=== PATIENT | male | born 1955 | race African-American/Black ===

== ENCOUNTER 2022-07-18 14:06 | Inpatient (IN) | payer MEDICARE, OTHER ==
[~2022-07-18] VITALS: Ht 170.2 cm; Wt 83.0 kg
[2022-07-18] MEDS ORDERED: IV NS 0.9% 1,000 ML BAG IV ONE (14:30)
--- NOTE | 2022-07-18 14:45 | NUR ---
PT ON BED WITH CC OF BODY WEAKNESS. PUT ON GOWN. TECH AT BEDSIDE DOING EKG
--- NOTE | 2022-07-18 14:52 | NUR ---
joseph johnson sent to labcovid swad done sent to lab. msra SWAB DONE SENT TO LAB BY TECH. PUT ON MONITOR AND PULSE
[2022-07-18 15:05] LABS: BASOPHILS % (AUTO) 0.2 % (0.0-2.0); EOSINOPHILS % (AUTO) 4.7 % (0.0-6.0); HEMATOCRIT 35 % (39-51); HEMOGLOBIN 11.9 g/dL (13.5-17.5); LYMPHOCYTES # (AUTO) 2.2 K/uL (0.8-4.8); LYMPHOCYTES % (AUTO) 23.4 % (20.0-44.0); MEAN CORPUSCULAR HGB CONC 34 g/dl (31.0-36.0); MEAN CORPUSCULAR VOLUME 99 fL (80-96); MONOCYTES # (AUTO) 0.8 K/uL (0.1-1.30); MONOCYTES % (AUTO) 8.1 % (2.0-12.0); NEUTROPHILS % (AUTO) 63.6 % (43.0-81.0); PLATELET COUNT (AUTO) 240 K/uL (150-450); RED BLOOD CELL COUNT(AUTO) 3.59 MIL/uL (4.5-6.0); WHITE BLOOD COUNT (AUTO) 9.5 K/uL (4.3-11.0)
[2022-07-18 15:17] LABS: CALCIUM, SERUM 8.7 mg/dL (8.5-10.1); POTASSIUM 4.5 mmol/L (3.5-5.1)
--- NOTE | 2022-07-18 15:20 | NUR ---
ACCUCHECK DONE 102. AWARE
[2022-07-18 15:22] LABS: ALBUMIN 2.9 g/dL (3.4-5.0); BILIRUBIN,DIRECT 0.1 mg/dL (0.0-0.2); BILIRUBIN,TOTAL 0.3 mg/dL (0.2-1.0); TOTAL PROTEIN, SERUM 5.9 g/dL (6.4-8.2)
--- NOTE | 2022-07-18 15:43 | NUR ---
CALLED NURSING SUP REGARDING PT BED
--- NOTE | 2022-07-18 16:33 | NUR ---
BED GIVEN 306-1
[2022-07-18] MEDS ORDERED: BISA10SU11 RC (17:02)
[2022-07-18] MEDS ORDERED: GABA-536 PO (17:02)
[2022-07-18] MEDS ORDERED: ACET-868 PO (17:02)
[2022-07-18] MEDS ORDERED: MAGN400O6 PO (17:02)
[2022-07-18] MEDS ORDERED: ATOR10TA PO (17:02)
[2022-07-18] MEDS ORDERED: DIVA250T47 PO (17:02)
[2022-07-18] MEDS ORDERED: RISP0.2515 PO (17:02)
[2022-07-18] MEDS ORDERED: BENZ1TAB7 PO (17:02)
[2022-07-18] MEDS ORDERED: VENL75TA4 PO (17:02)
[2022-07-18] MEDS ORDERED: NA P133E RC (17:02)
[2022-07-18] MEDS ORDERED: NA PHOS,M-B/NA PHOS,DI-BA 1 EA ENEMA RC PRN (17:30)
[2022-07-18] MEDS ORDERED: Z GUARD REMEDY 4 OZ OINT TP PRN (17:30)
[2022-07-18] MEDS ORDERED: ONDANSETRON HCL/PF 4 MG/2 ML VIAL IVP PRN (17:30)
[2022-07-18] MEDS ORDERED: MAGNESIUM HYDROXIDE 30 ML UDC PO PRN (17:30)
[2022-07-18] MEDS ORDERED: ACETAMINOPHEN 325 MG TABLET PO PRN (17:30)
[2022-07-18] MEDS ORDERED: HYDROCODONE/APAP 5/325MG TABLET PO PRN (17:30)
[2022-07-18] MEDS ORDERED: BISACODYL SUPP (10 MG) 10 MG/SUPP.RECT SUPP.RECT RC PRN (17:30)
[2022-07-18] MEDS ORDERED: MAG HYDROX/AL HYDROX/SIMETH 30 ML UDC PO PRN (17:30)
[2022-07-18 17:50] LABS: CHOLESTEROL 105 mg/dL (<200); HDL CHOLESTEROL 41 mg/dL (40-60); LDL 57 mg/dL (0-99); TRIGLYCERIDES 66 mg/dL (30-150)
--- NOTE | 2022-07-18 18:36 | NUR ---
MS RN ADMITTING NOTES PT ARRIVED TO UNIT VIA GURNEY @ AROUND 1700H, ASSISTED BY ER STAFF. ABLE TO WALK TO HIS BED. A/O X4, COOPERATIVE, ABLE TO MAKE NEEDS KNOWN. VITAL SIGNS: 140/67 BP, 68 HR, 96% O2, 98.9 F, 19 RR. WEIGHT: 183 LB. STABLE ON RA WITH NO S/S OF SOB OR LABORED BREATHING. DENIES PAIN OR DISCOMFORT AT THIS TIME. IV ACCESS RAC #20G INTACT, PATENT, FLUSHING WELL. SKIN ASSESSMENT PERFORMED, HOWEVER, PATIENT REFUSED THOROUGH ASSESSMENT, REFUSED TO CHECK PRIVATE PARTS OF THE BODY. BELONGINGS DOCUMENTED AND FORM PLACED IN CHART. ORIENTED TO UNIT AND HOW TO USE CALL LIGHT. MADE COMFORTABLE AND PROVIDED DINNER PER DIET ORDERED. SAFETY PRECAUTIONS PUT IN PLACE: BED LOCKED AND IN LOW POSITION, SIDE RAILS UP X2, BED ALARM ON, CALL LIGHT AND TRAY TABLE WITHIN REACH. WILL ENDORSED TO NIGHT NURSE FOR FURTHER CARE AND MANAGEMENT.
[2022-07-18 18:42] VITALS: BP 147/67
[2022-07-18] MEDS: IV NS 0.9% 1,000 ML IV PRN (19:00)
--- NOTE | 2022-07-18 19:00 | NUR ---
RN OPENING NOTE RECEIVED PT AWAKE IN BED. PT IS A/OX3, ABLE TO MAKE NEEDS KNOWN.PT IS IN RA TOLERATING WELL, BREATHING EVEN AND UNLABORED @ THIS TIME. PT IV PRESENT RIGHT AC #20G RUNNING NS @75MLS/HR, PATENT, INTACT AND FLUSHES WELL W/ NO S &SX OF INFILTRATION @ SITE NOTED. PT IS AMBULATORY WITH BRP. SAFETY MEASURE IS IN PACE. BED PLACED IN LOWEST & LOCKED POSITION. SIDE RAILS X 2. BEDSIDE TABLE AND CALL LIGHT IS EASY REACH. BED ALARM IS ON. WILL CONTINUE TO MONITOR PT ACCORDINGLY.
[2022-07-18 20:00] VITALS: BP 158/79
[2022-07-18] MEDS: DIVALPROEX SODIUM 250 MG TABLET.DR PO SCH (20:20)
[2022-07-18] MEDS: risperiDONE 1 MG TABLET PO SCH (21:25)
[2022-07-18] MEDS: ATORVASTATIN 10 MG TABLET PO SCH (21:25)
--- NOTE | 2022-07-19 04:30 | NUR ---
PT PULLED OUT IV ON RAC. IV INSERTED @ LEFT HAND #20G.
[2022-07-19 05:56] LABS: BASOPHILS % (AUTO) 0.4 % (0.0-2.0); EOSINOPHILS % (AUTO) 4.5 % (0.0-6.0); HEMATOCRIT 38 % (39-51); HEMOGLOBIN 12.7 g/dL (13.5-17.5); LYMPHOCYTES % (AUTO) 17.9 % (20.0-44.0); MEAN CORPUSCULAR HGB CONC 34 g/dl (31.0-36.0); MEAN CORPUSCULAR VOLUME 99 fL (80-96); MONOCYTES # (AUTO) 0.9 K/uL (0.1-1.30); MONOCYTES % (AUTO) 7.8 % (2.0-12.0); NEUTROPHILS # (AUTO) 7.8 K/uL (1.8-8.9); NEUTROPHILS % (AUTO) 69.4 % (43.0-81.0); PLATELET COUNT (AUTO) 242 K/uL (150-450); RED BLOOD CELL COUNT(AUTO) 3.83 MIL/uL (4.5-6.0); WHITE BLOOD COUNT (AUTO) 11.3 K/uL (4.3-11.0)
[2022-07-19 06:17] LABS: CREATININE 0.8 mg/dL (0.6-1.3); MAGNESIUM 1.9 mg/dL (1.8-2.4); PHOSPHORUS 3.8 mg/dL (2.5-4.9); POTASSIUM 4.2 mmol/L (3.5-5.1)
[2022-07-19 06:30] LABS: THYROID STIMULATING HORMONE 3.445 uIU/mL (0.358-3.74)
--- NOTE | 2022-07-19 06:36 | NUR ---
RN CLOSING NOTE PT IS AWAKE & RESTING COMFORTABLY IN BED. PT IS A/OX3, RESPONSIVE AND FOLLOWS VERBAL COMMAND. PT IS IN RA W/ NO S & SX OF RESPIRATORY DISTRESS @ THIS TIME. PT IV PRESENT RIGHT AC #20G RUNNING NS @25 MLS/HR, PATENT, INTACT AND FLUSHES WELL W/ NO S &SX OF INFILTRATION @ SITE NOTED. PT IS AMBULATORY WITH BRP. KEPT CLEAN, DRY AND COMFORTABLE. ADMINISTERED MEDICATION ACCORDINGLY PER MD'S ORDER. SAFETY MEASURE IS IN PLACE. BED PLACED IN LOWEST & LOCKED POSITION. SIDE RAILS X 2. BEDSIDE TABLE AND CALL LIGHT IS EASY REACH. BED ALARM IS ON. WILL ENDORSE PT TO THE NEXT SHIFT FOR ASHLEY.
--- NOTE | 2022-07-19 07:51 | NUR ---
MS RN OPENING NOTES RECEIVED PATIENT AWAKE, LYING IN BED. PATIENT IS A/O X3. NO SOB AND NO DISTRESS NOTED. IV ACCESS LEFT HAND G#20 NS @75 ML/HR. BREATHING EVEN AND UNLABORED IN ROOM AIR. ALL SAFETY MEASURES IN PLACE. BED LOCKED IN THE LOWEST POSITION. CALL LIGHT AND TABLE IN EASY REACH. SIDE RAILS UP X2. BED ALARM ON. WILL CONTINUE TO MONITOR CLOSELY FOR ANY ASHLEY AND ASSIST PATIENT WITH IMMEDIATE NEEDS.
[2022-07-19 08:13] VITALS: BP 136/63
[2022-07-19] MEDS: BENZTROPINE MESYLATE (1 MG) 1 MG TABLET PO SCH ×2 (08:41→16:57)
[2022-07-19] MEDS: DIVALPROEX SODIUM 250 MG TABLET.DR PO SCH ×2 (08:41→21:08)
[2022-07-19] MEDS: PANTOPRAZOLE 40 MG TABLET.DR PO SCH (08:41)
[2022-07-19] MEDS: VENLAFAXINE XR 75 MG CAP.SR.24H PO SCH (08:41)
[2022-07-19] MEDS: GABAPENTIN 400 MG CAPSULE PO SCH ×3 (08:42→16:57)
--- NOTE | 2022-07-19 15:57 | NUR ---
RN NOTE PATIENT REQUESTED FOR NICOTINE PATCH. DR WAS INFORMED. CALLED PHARMACY SPOKE WITH BONE DENSITY TECHNICIAN AND THEY RECOMMENDED NICOTINE PATCH 14 MG QD FOR 6 WEEKS AND NICOTINE PATCH 7 MG QD FOR 2 MORE WEEKS AFTER. ORDER WAS PLACED
[2022-07-19 16:08] VITALS: BP 143/78
[2022-07-19] MEDS: NICOTINE PATCH (14MG) 14 MG PATCH.TD24 TD SCH (16:57)
[2022-07-19 17:00] LABS: BILIRUBIN,URINE NEGATIVE (NEGATIVE); COLOR,URINE YELLOW (YELLOW); LEUKOCYTE ESTERASE ,URINE NEGATIVE (NEGATIVE); NITRITE, URINE NEGATIVE (NEGATIVE); PH,URINE 6.5 (5.0-8.0); PROTEIN,URINE NEGATIVE (NEGATIVE); UGLUCOSE NEGATIVE (NEGATIVE); UROBILINOGEN,URINE 0.2 EU/dL (0.2)
--- NOTE | 2022-07-19 19:17 | NUR ---
MS RN CLOSING NOTES PATIENT AWAKE, LYING IN BED. PATIENT IS A/O X3. NO SOB AND NO DISTRESS NOTED. IV ACCESS REINSERTED RIGHT HAND G#20 NS @75 ML/HR. BREATHING EVEN AND UNLABORED IN ROOM AIR. ALL SAFETY MEASURES IN PLACE. BED LOCKED IN THE LOWEST POSITION. CALL LIGHT AND TABLE IN EASY REACH. SIDE RAILS UP X2. BED ALARM ON. SCHEDULED MEDICATIONS ADMINISTERED. ENCOURAGED PATIENT FOR SELF CARE BUT PATIENT REFUSED TO BE CHANGED OR TO WEAR A HOSPITAL GOWN. REFUSED SKIN ASSESSMENT. REFUSED IV FLUIDS AT TIMES. ALL NEEDS ATTENDED AND ANTICIPATED. WILL ENDORSE TO MANAGER FACILITY NURSE
--- NOTE | 2022-07-19 19:30 | NUR ---
MS RN OPENING NOTE RECEIVED PATIENT AWAKE, LYING IN BED. PATIENT IS A/O X3, STABLE ON ROOM AIR WITH NO SOB AND NO DISTRESS NOTED; WITH IV ACCESS AT RIGHT HAND G#20 RUNNING WITH NS @75 ML/HR; ENCOURAGED VERBALIZATION OF NEEDS; SAFETY MEASURES IMPLEMENTED, BED LOCKED IN THE LOWEST POSITION; CALL LIGHT AND TABLE IN EASY REACH. SIDE RAILS UP X2; WILL CONTINUE TO MONITOR THROUGHOUT SHIFT
[2022-07-19 20:00] VITALS: BP 148/82
[2022-07-19] MEDS: risperiDONE 1 MG TABLET PO SCH (21:08)
[2022-07-19] MEDS: ATORVASTATIN 10 MG TABLET PO SCH (21:08)
[2022-07-19] MEDS: IV NS 0.9% 1,000 ML IV PRN (22:42)
--- NOTE | 2022-07-20 07:00 | NUR ---
MS RN OPENING NOTES: RECEIVED PT IN BED AWAKE ALERT AND ORIENTED X 3 AND ABLE TO MAKE NEEDS KNOWN. NO SOB OR CARDIAC DISTRESS NOTED AND ON ROOM AIR AND TOLERATING WELL. PT NOTED WITH DYSARTHRIA BUT ABLE TO UNDERSTAND HIS WORDS. IV ACCESS OMM R HAND GAUGE 20 PATENT, INTACT AND RUNNING NS 1L AT 75ML/HR. SAFETY MEASURES MAINTAINED: BED LOCKED AND IN LOWEST POSITION, SIDERAILS UP X 2 CALL LIGHT IN EASY REACH AND WILL MONITOR PT ACCORDINGLY.
--- NOTE | 2022-07-20 07:20 | NUR ---
MS RN CLOSING NOTE PATIENT AWAKE, SITTING IN BED. PATIENT IS A/O X3, STABLE ON ROOM AIR WITH NO SOB AND NO DISTRESS NOTED; WITH IV ACCESS AT RIGHT HAND G#20 RUNNING WITH NS @75 ML/HR; NO COMPLAINTS OF PAIN AND DISCOMFORT AT THIS TIME; ADMINISTERED MEDICATIONS PRESCRIBED; PATIENT'S NEEDS ATTENDED; MONITORED PATIENT ACCORDINGLY; SAFETY MEASURES IMPLEMENTED, BED LOCKED IN THE LOWEST POSITION; CALL LIGHT AND TABLE IN EASY REACH. SIDE RAILS UP X2; ENDORSED TO AM SHIFT NURSE FOR ASHLEY
[2022-07-20] MEDS: PANTOPRAZOLE 40 MG TABLET.DR PO SCH (07:32)
[2022-07-20 08:00] VITALS: BP 115/69
[2022-07-20] MEDS: GABAPENTIN 400 MG CAPSULE PO SCH ×3 (08:46→16:19)
[2022-07-20] MEDS: BENZTROPINE MESYLATE (1 MG) 1 MG TABLET PO SCH ×2 (08:46→16:19)
[2022-07-20] MEDS: VENLAFAXINE XR 75 MG CAP.SR.24H PO SCH (08:46)
[2022-07-20] MEDS: NICOTINE PATCH (14MG) 14 MG PATCH.TD24 TD SCH (08:47)
[2022-07-20] MEDS: DIVALPROEX SODIUM 250 MG TABLET.DR PO SCH ×2 (08:47→21:31)
--- NOTE | 2022-07-20 15:01 | NUR ---
RN NOTES: PT WALKING AROUND THE UNIT, PT REQUESTED IF WE CAN DC IV FLUIDS. INFORMED DR MCDANIEL THAT PT REQUESTING TO DC IV FLUIDS, PT BEEN EATING AND DRINKING FLUIDS. NO IV ATB. ORDERED OK TO DC IV FLUIDS. ORDERS NOTED ADN CARRIED OUT.
[2022-07-20 16:00] VITALS: BP 122/71
--- NOTE | 2022-07-20 19:05 | NUR ---
MS CLOSING NOTES: PT IN BED AWAKE ALERT AND ORIENTED X 3 AND ABLE TO MAKE NEEDS KNOWN. NO SOB OR CARDIAC DISTRESS NOTED AND ON ROOM AIR AND TOLERATING WELL. PT NOTED WITH DYSARTHRIA BUT ABLE TO UNDERSTAND HIS WORDS. IV ACCESS ON R HAND GAUGE 20 PATENT, INTACT AND SALINE LOCKED. SAFETY MEASURES MAINTAINED: BED LOCKED AND IN LOWEST POSITION, SIDERAILS UP X 2 CALL LIGHT IN EASY REACH.ENDORSED TO HOT REPAIRMAN RN FOR CONTINUITY OF CARE.
--- NOTE | 2022-07-20 19:40 | NUR ---
MS RN OPENING NOTE PATIENT AWAKE IN BED WATCHING TV, PT ALERT/ORIENTED X 3, PT NOTED SLURRED SPEECH, PER DAYSHIFT RN SLURRED SPEECH AT BASELINE. PATIENT STABLE ON RA, NO S/S OF DISTRESS OR SOB NOTED, BREATHING EVEN AND UNLABORED. OBSERVED PATIENT WALKING TO BATHROOM WITH STEADY GAIT. IV ACCESS ON RIGHT HAND #20G INTACT AND SALINE LOCKED. SAFETY MEASURES IN PLACE: CALL LIGHT WITHIN REACH, SIDE RAILS UP X 2, BED LOCKED IN LOWEST, HOB ELEVATED. WILL CONTINUE TO MONITOR PATIENT
[2022-07-20] MEDS: ATORVASTATIN 10 MG TABLET PO SCH (21:31)
[2022-07-20] MEDS: risperiDONE 1 MG TABLET PO SCH (21:31)
--- NOTE | 2022-07-21 06:25 | NUR ---
MS RN CLOSING NOTE PATIENT SLEEPING IN BED, PT ALERT/ORIENTED X 3, PT NOTED SLURRED SPEECH AT BASELINE. PATIENT STABLE ON RA, NO S/S OF DISTRESS OR SOB NOTED, BREATHING EVEN AND UNLABORED. IV ACCESS ON RIGHT HAND #20G INTACT AND SALINE LOCKED. NO SIGNIFICANT CHANGES THIS SHIFT, PT SLEPT WELL THROUGHOUT THE NIGHT, MEDICATIONS GIVEN ORDERED, PT NEEDS MET THROUGHOUT SHIFT. SAFETY MEASURES IN PLACE: CALL LIGHT WITHIN REACH, SIDE RAILS UP X 2, BED LOCKED IN LOWEST, HOB ELEVATED. WILL ENDORSE TO DAYSHIFT RN FOR CONTINUITY OF CARE
[2022-07-21 07:00] VITALS: BP 117/74
--- NOTE | 2022-07-21 07:15 | NUR ---
MS RN OPENING NOTE PATIENT AWAKE IN BED AMBULATING, PT ALERT/ORIENTED X 3, PT NOTED SLURRED SPEECH, PER NIGHTSHIFT RN SLURRED SPEECH AT BASELINE. PATIENT STABLE ON RA, NO S/S OF DISTRESS OR SOB NOTED, BREATHING EVEN AND UNLABORED. OBSERVED PATIENT WALKING TO BATHROOM WITH STEADY GAIT. IV ACCESS ON RIGHT HAND #20G INTACT AND SALINE LOCKED. SAFETY MEASURES IN PLACE: CALL LIGHT WITHIN REACH, SIDE RAILS UP X 2, BED LOCKED IN LOWEST, HOB ELEVATED. WILL CONTINUE TO MONITOR THE PATIENT
[2022-07-21] MEDS: DIVALPROEX SODIUM 250 MG TABLET.DR PO SCH ×2 (08:28→20:27)
[2022-07-21] MEDS: PANTOPRAZOLE 40 MG TABLET.DR PO SCH (08:28)
[2022-07-21] MEDS: GABAPENTIN 400 MG CAPSULE PO SCH ×3 (08:28→16:13)
[2022-07-21] MEDS: NICOTINE PATCH (14MG) 14 MG PATCH.TD24 TD SCH (08:28)
[2022-07-21] MEDS: BENZTROPINE MESYLATE (1 MG) 1 MG TABLET PO SCH ×2 (08:28→16:12)
[2022-07-21] MEDS: VENLAFAXINE XR 75 MG CAP.SR.24H PO SCH (08:29)
[2022-07-21 16:00] VITALS: BP 131/72
--- NOTE | 2022-07-21 18:37 | NUR ---
MS RN CLOSING NOTE PATIENT AWAKE A/O X 3, NOTED WITH SLURRED SPEECH AT BASELINE. PATIENT STABLE ON RA, NO S/S OF DISTRESS OR SOB NOTED, BREATHING EVEN AND UNLABORED. IV ACCESS ON RIGHT HAND #20G, C/D/I. PT IS FREQUENTLY AMBULATING, BOWEL MOVEMENT X1 THIS MORNING. NO SIGNIFICANT CHANGES THIS SHIFT, MEDICATIONS GIVEN ORDERED AND NEEDS MET THROUGHOUT SHIFT. PATIENT IS STABLE, WITH DC ORDER TODAY BACK TO [facility]. HOWEVER, [facility] MOVED ADMISSION FOR TOMORROW AT 11AM. SAFETY MEASURES IN PLACE: CALL LIGHT WITHIN REACH, SIDE RAILS UP X 2, BED LOCKED IN LOWEST, HOB ELEVATED. WILL ENDORSE TO PM SHIFT NURSE FOR CONTINUITY OF CARE
--- NOTE | 2022-07-21 19:35 | NUR ---
MS RN OPENING NOTE RECEIVED PATIENT IN BED; AWAKE, ALERT AND ORIENTED X 3. PATIENT NOTED WITH SLURRED SPEECH. ON ROOM AIR; TOLERATING WELL. BREATHING EVEN AND NONLABORED. NO S/S OF RESPIRATORY OR CARDIAC DISTRESS NOTED. NO C/O PAIN OR DISCOMFORT AT THIS TIME. WITH IV ACCESS ON RIGHT HAND 20g; PATENT, INTACT AND SALINE LOCKED. ABLE TO MAKE NEEDS KNOWN. SAFETY MEASURES IMPLEMENTED: CALL LIGHT AND TABLE WITHIN REACH, SIDE RAILS UP X 2, BED IN LOWEST LOCKED POSITION. WILL CONTINUE TO MONITOR THROUGHOUT SHIFT.
[2022-07-21 20:00] VITALS: BP 108/43
[2022-07-21] MEDS: ATORVASTATIN 10 MG TABLET PO SCH (22:03)
[2022-07-21] MEDS: risperiDONE 1 MG TABLET PO SCH (22:03)
--- NOTE | 2022-07-22 06:50 | NUR ---
MS RN CLOSING NOTE PATIENT IN BED; AWAKE, A/O X 3. STILL ON ROOM AIR; WELL TOLERATING. IN NO ACUTE DISTRESS. DENIES ANY PAIN OR DISCOMFORT AT THIS TIME. WITH IV ACCESS ON RIGHT HAND 20g; PATENT, INTACT AND SALINE LOCKED. ALL NEEDS ATTENDED. ALL DUE MEDS GIVEN ORDERED. SAFETY MEASURES MAINTAINED: CALL LIGHT AND TABLE WITHIN REACH, SIDE RAILS UP X 2, BED IN LOWEST LOCKED POSITION. ENDORSED TO MORNING SHIFT FOR CONTINUITY OF CARE.
--- NOTE | 2022-07-22 07:35 | NUR ---
MS RN OPENING NOTES RECEIVED PATIENT AWAKE, LYING IN BED. PATIENT IS A/O X3. NO SOB AND NO DISTRESS NOTED. IV ACCESS RIGH HAND G#20 SL. BREATHING EVEN AND UNLABORED IN ROOM AIR. ALL SAFETY MEASURES IN PLACE. BED LOCKED IN THE LOWEST POSITION. CALL LIGHT AND TABLE IN EASY REACH. SIDE RAILS UP X2. BED ALARM ON. WILL CONTINUE TO MONITOR CLOSELY FOR ANY ASHLEY AND ASSIST PATIENT WITH IMMEDIATE NEEDS.
[2022-07-22 08:00] VITALS: BP 147/94
[2022-07-22] MEDS: GABAPENTIN 400 MG CAPSULE PO SCH ×2 (08:21→12:08)
[2022-07-22] MEDS: VENLAFAXINE XR 75 MG CAP.SR.24H PO SCH (08:21)
[2022-07-22] MEDS: PANTOPRAZOLE 40 MG TABLET.DR PO SCH (08:21)
[2022-07-22] MEDS: NICOTINE PATCH (14MG) 14 MG PATCH.TD24 TD SCH (08:21)
[2022-07-22] MEDS: BENZTROPINE MESYLATE (1 MG) 1 MG TABLET PO SCH (08:21)
[2022-07-22] MEDS: DIVALPROEX SODIUM 250 MG TABLET.DR PO SCH (08:22)
--- NOTE | 2022-07-22 13:00 | NUR ---
MS INSURANCE POLICY CLERK NOTE PATIENT DISCHARGE IN STABLE MEDICAL CONDITION. A/O X4. V/S TAKEN, STABLE AND RECORDED. NO IV ACCESS. NAME ARM BAND REMOVED. REFUSED SKIN ASSESSMENT. ALL BELONGINGS CHECKED AND BELONGINGS LIST SIGNED. HEALTH TEACHING AND DISCHARGE INSTRUCTIONS GIVEN AND VERBALIZED UNDERSTANDING. INSTRUCTED PATIENT TO MAKE AN APPOINTMENT WITH HIS PRIMARY DOCTOR. DISCUSSED PRESCRIPTION WITH PATIENT. INSTRUCTED PATIENT IN CASE OF EMERGENCY TO CALL 911 OR GO TO THE NEAREST ER. REPORT GIVEN TO NURSE PANG-TERE AT [facility]. PATIENT LEFT VIA GURNEY WITH NO SIGNS OF DISTRESS ACCOMPANIED BY PHOTOENGRAVING PHOTOGRAPHER TO THE LOBBY. CHARGE NURSE AWARE OF DISCHARGED.
[2022-09-05] MEDS ORDERED: NICOTINE PATCH (7MG) 7 MG PATCH.TD24 TD SCH (09:00)
== END 2022-07-22 13:00 | DRG 641 ==
LOC: ER 14:15 → MED 17:07
DX: R62.7 Adult failure to thrive (principal); E44.1 Mild protein-calorie malnutrition; E87.1 Hypo-osmolality and hyponatremia; G93.49 Other encephalopathy; I10 Essential (primary) hypertension; J44.9 Chronic obstructive pulmonary disease, unspecified; G62.9 Polyneuropathy, unspecified; Z20.822 Contact with and (suspected) exposure to COVID-19; E78.5 Hyperlipidemia, unspecified; F32.A Depression, unspecified; F41.9 Anxiety disorder, unspecified; D64.9 Anemia, unspecified; E88.09 Other disorders of plasma-protein metabolism, not elsewhere classified; G31.84 Mild cognitive impairment of uncertain or unknown etiology; Z53.20 Procedure and treatment not carried out because of patient's decision for unspecified reasons
CPT/HCPCS: 36415; 71045-TC; 80048-TC; 80061-TC; 80076-TC; 82962-TC; 83735-TC; 84100-TC; 84443-TC; 85025-TC; 87081-TC; 87086-TC; 97112-TC; 97116-TC; 97530-TC; A4223; C9803; G0378; J7030

== ENCOUNTER 2022-12-25 15:25 | Inpatient (IN) | payer MEDICARE, OTHER ==
[~2022-12-25] VITALS: Ht 170.2 cm; Wt 65.3 kg
[~2022-12-25 15:25] MED LIST: ACET-868 PO; ATOR10TA PO; BENZ1TAB7 PO; BISA10SU11 RC; DIVA250T47 PO; GABA-536 PO; MAGN400O6 PO; NA P133E RC; RISP0.2515 PO; VENL75TA4 PO
[2022-12-25] MEDS ORDERED: IV NS 0.9% 1,000 ML BAG IV ONE (17:00)
[2022-12-25] MEDS ORDERED: PANT40TA49 PO (17:14)
[2022-12-25] MEDS ORDERED: DIVA-78 PO (17:14)
[2022-12-25] MEDS ORDERED: RISP2TAB5 PO (17:14)
[2022-12-25 19:04] LABS: BASOPHILS % (AUTO) 0.4 % (0.0-2.0); EOSINOPHILS # (AUTO) 0.3 K/uL (0.0-0.7); EOSINOPHILS % (AUTO) 3.6 % (0.0-6.0); HEMATOCRIT 40 % (39-51); HEMOGLOBIN 13.6 g/dL (13.5-17.5); LYMPHOCYTES # (AUTO) 2.5 K/uL (0.8-4.8); LYMPHOCYTES % (AUTO) 29.7 % (20.0-44.0); MEAN CORPUSCULAR HEMOGLOBIN 34 PG (26.0-33.0); MEAN CORPUSCULAR HGB CONC 34 g/dl (31.0-36.0); MEAN CORPUSCULAR VOLUME 99 fL (80-96); MONOCYTES # (AUTO) 0.6 K/uL (0.1-1.30); MONOCYTES % (AUTO) 7.8 % (2.0-12.0); NEUTROPHILS # (AUTO) 4.9 K/uL (1.8-8.9); NEUTROPHILS % (AUTO) 58.5 % (43.0-81.0); PLATELET COUNT (AUTO) 232 K/uL (150-450); RED BLOOD CELL COUNT(AUTO) 4.04 MIL/uL (4.5-6.0); RED CELL DISTRIBUTION WIDTH 14.5 % (11.5-15.0); WHITE BLOOD COUNT (AUTO) 8.3 K/uL (4.3-11.0)
[2022-12-25 19:14] LABS: CALCIUM, SERUM 9.2 mg/dL (8.5-10.1); CARBON DIOXIDE 31 mmol/L (21-32); CHLORIDE 94 mmol/L (98-107); CREATININE 0.9 mg/dL (0.6-1.3); GLUCOSE 86 mg/dL (74-106); POTASSIUM 3.9 mmol/L (3.5-5.1); SODIUM SERUM 132 mmol/L (136-145); UREA NITROGEN, BLOOD 11 mg/dL (7-18)
[2022-12-25 19:43] LABS: APPEARANCE,URINE CLEAR (CLEAR); BILIRUBIN,URINE NEGATIVE (NEGATIVE); BLOOD, URINE NEGATIVE Ery/uL (NEGATIVE); COLOR,URINE YELLOW (YELLOW); KETONES,URINE NEGATIVE (NEGATIVE); LEUKOCYTE ESTERASE ,URINE NEGATIVE (NEGATIVE); NITRITE, URINE NEGATIVE (NEGATIVE); PROTEIN,URINE NEGATIVE (NEGATIVE); UGLUCOSE NEGATIVE (NEGATIVE); UROBILINOGEN,URINE 0.2 EU/dL (0.2)
[2022-12-25] MEDS ORDERED: BISACODYL SUPP (10 MG) 10 MG/SUPP.RECT SUPP.RECT RC PRN (20:00)
[2022-12-25] MEDS ORDERED: MAG HYDROX/AL HYDROX/SIMETH 30 ML UDC PO PRN (20:00)
[2022-12-25] MEDS ORDERED: ACETAMINOPHEN 325 MG TABLET PO PRN (20:00)
[2022-12-25] MEDS ORDERED: MAGNESIUM HYDROXIDE 30 ML UDC PO PRN (20:00)
[2022-12-25] MEDS ORDERED: ONDANSETRON HCL/PF 4 MG/2 ML VIAL IVP PRN (20:00)
[2022-12-25] MEDS ORDERED: Z GUARD REMEDY 4 OZ OINT TP PRN (20:00)
[2022-12-25 21:15] VITALS: BP 158/64; TEMP 97.2; O2SAT 96
[2022-12-25] MEDS: ATORVASTATIN 10 MG TABLET PO SCH (22:23)
[2022-12-25] MEDS: risperiDONE 1 MG TABLET PO SCH (22:24)
[2022-12-26 04:00] VITALS: BP 160/61; TEMP 97.2; O2SAT 96
[2022-12-26 07:20] LABS: BASOPHILS % (AUTO) 0.3 % (0.0-2.0); EOSINOPHILS # (AUTO) 0.3 K/uL (0.0-0.7); EOSINOPHILS % (AUTO) 4.4 % (0.0-6.0); HEMATOCRIT 40 % (39-51); HEMOGLOBIN 13.3 g/dL (13.5-17.5); LYMPHOCYTES # (AUTO) 1.8 K/uL (0.8-4.8); LYMPHOCYTES % (AUTO) 22.6 % (20.0-44.0); MEAN CORPUSCULAR HEMOGLOBIN 33 PG (26.0-33.0); MEAN CORPUSCULAR HGB CONC 34 g/dl (31.0-36.0); MEAN CORPUSCULAR VOLUME 98 fL (80-96); MONOCYTES # (AUTO) 0.7 K/uL (0.1-1.30); MONOCYTES % (AUTO) 9.1 % (2.0-12.0); NEUTROPHILS # (AUTO) 5.1 K/uL (1.8-8.9); NEUTROPHILS % (AUTO) 63.6 % (43.0-81.0); PLATELET COUNT (AUTO) 218 K/uL (150-450); RED BLOOD CELL COUNT(AUTO) 4.02 MIL/uL (4.5-6.0); RED CELL DISTRIBUTION WIDTH 13.9 % (11.5-15.0)
[2022-12-26] MEDS ORDERED: PANTOPRAZOLE 40 MG TABLET.DR PO SCH (07:30)
[2022-12-26 07:40] LABS: CALCIUM, SERUM 9.1 mg/dL (8.5-10.1); CREATININE 0.8 mg/dL (0.6-1.3); PHOSPHORUS 4.6 mg/dL (2.5-4.9); POTASSIUM 4.2 mmol/L (3.5-5.1)
[2022-12-26] MEDS: PANTOPRAZOLE 40 MG TABLET.DR PO SCH (07:47)
[2022-12-26] MEDS: VENLAFAXINE 37.5 MG TABLET PO SCH (08:19)
[2022-12-26] MEDS: GABAPENTIN 400 MG CAPSULE PO SCH ×3 (08:19→16:13)
[2022-12-26] MEDS: BENZTROPINE MESYLATE (1 MG) 1 MG TABLET PO SCH ×2 (08:19→16:13)
[2022-12-26] MEDS: DIVALPROEX SODIUM 500 MG TABLET.DR PO SCH ×2 (08:19→16:13)
[2022-12-26 12:00] VITALS: BP 92/80; TEMP 97.3; O2SAT 93
[2022-12-26 20:00] VITALS: BP 153/73; TEMP 97.9; O2SAT 95
[2022-12-26] MEDS: ATORVASTATIN 10 MG TABLET PO SCH (21:42)
[2022-12-26] MEDS: risperiDONE 1 MG TABLET PO SCH (21:43)
[2022-12-27 04:17] VITALS: BP 135/71; TEMP 97.7; O2SAT 99
[2022-12-27] MEDS: PANTOPRAZOLE 40 MG TABLET.DR PO SCH (08:01)
[2022-12-27] MEDS: GABAPENTIN 400 MG CAPSULE PO SCH ×3 (08:49→17:39)
[2022-12-27] MEDS: DIVALPROEX SODIUM 500 MG TABLET.DR PO SCH ×2 (08:49→17:39)
[2022-12-27] MEDS: BENZTROPINE MESYLATE (1 MG) 1 MG TABLET PO SCH ×2 (08:49→17:39)
[2022-12-27] MEDS: VENLAFAXINE 37.5 MG TABLET PO SCH (08:50)
[2022-12-27 12:00] VITALS: BP 131/80; TEMP 97.8; O2SAT 96
[2022-12-27 20:00] VITALS: BP 118/76; TEMP 97.7; O2SAT 96
[2022-12-27] MEDS: ATORVASTATIN 10 MG TABLET PO SCH (22:11)
[2022-12-27] MEDS: risperiDONE 1 MG TABLET PO SCH (22:11)
[2022-12-28 04:00] VITALS: BP 123/64; TEMP 98.1; O2SAT 97
[2022-12-28 08:00] VITALS: BP 105/71; TEMP 97.9; O2SAT 93
[2022-12-28] MEDS: BENZTROPINE MESYLATE (1 MG) 1 MG TABLET PO SCH (08:23)
[2022-12-28] MEDS: VENLAFAXINE 37.5 MG TABLET PO SCH (08:23)
[2022-12-28] MEDS: DIVALPROEX SODIUM 500 MG TABLET.DR PO SCH (08:23)
[2022-12-28] MEDS: PANTOPRAZOLE 40 MG TABLET.DR PO SCH (08:24)
[2022-12-28] MEDS: GABAPENTIN 400 MG CAPSULE PO SCH ×2 (08:24→13:12)
[2022-12-28] MEDS ORDERED: NICOTINE PATCH (21MG) 21 MG PATCH.TD24 TD SCH (13:00)
[2023-01-27] MEDS ORDERED: NICOTINE PATCH (21MG) 21 MG PATCH.TD24 TD SCH (13:00)
== END 2022-12-28 14:29 | DRG 640 ==
LOC: ER 15:25 → MEDSG1 19:55
DX: R62.7 Adult failure to thrive (principal); G92.8 Other toxic encephalopathy; E44.1 Mild protein-calorie malnutrition; E87.1 Hypo-osmolality and hyponatremia; G31.84 Mild cognitive impairment of uncertain or unknown etiology; E78.5 Hyperlipidemia, unspecified; I10 Essential (primary) hypertension; J44.9 Chronic obstructive pulmonary disease, unspecified; G62.9 Polyneuropathy, unspecified; F20.9 Schizophrenia, unspecified; F31.9 Bipolar disorder, unspecified; Z79.899 Other long term (current) drug therapy; E86.1 Hypovolemia; D64.9 Anemia, unspecified; E88.09 Other disorders of plasma-protein metabolism, not elsewhere classified
CPT/HCPCS: 36415; 71045-TC; 80048-TC; 83735-TC; 84100-TC; 84443-TC; 84484-TC; 85025-TC; 97112-TC; 97116-TC; 97530-TC; G0378; J7030